=== PATIENT | male | born 1975 | race Caucasian/White ===

== ENCOUNTER 2019-11-08 00:35 | Outpatient (CLI) | payer OTHER, SELFPAY ==
[2019-11-08 17:26] LABS: SARS-CoV-2 RNA PCR Negative
== END 2019-11-08 00:36 | disposition home or self-care (01) ==
LOC: ANHCOVIDDT 00:35
PROVIDERS: PCP Internal Medicine; Visit Provider Internal Medicine Gastroenterology
DX: Z01.812 Encounter for preprocedural laboratory examination (principal); Z11.59 Encounter for screening for other viral diseases
CPT/HCPCS: 87635; C9803; U0003

== ENCOUNTER 2019-11-10 01:54 | Day surgery (SDC) | payer OTHER, SELFPAY ==
--- NOTE | 2019-11-09 12:58 | WPDANESEPPF ---
Anes - Initial Pre Proc Eval Procedure: Operation Date: 11/10/19 07:30 Proposed Procedures p Esophagogastroduodenoscopy - Meet Nguyen MD Date/Time: 11/09/19 12:58 Surgeon: Meet Nguyen MD Pre Op Diagnosis: Reflux Patient Data Age: 44 Gender: M Height: Weight: Allergies Allergy/AdvReac Type Severity Reaction Status Date / Time Penicillins Allergy Unknown NOT SURE, Verified 11/10/19 06:25 HAPPENED WHEN INFANT Home Medications Medication Instructions Recorded Confirmed Type loratadine 10 mg tablet 10 mg PO DAILY PRN 08/23/19 11/10/19 History multivitamin 1 tablet PO DAILY 08/23/19 11/10/19 History olmesartan 20 1 tablet PO DAILY 08/23/19 11/10/19 History mg-hydrochlorothiazide 12.5 mg tablet omeprazole magnesium 20 mg 20 mg PO DAILY 08/23/19 11/10/19 History tablet,delayed release Patient hx anesthesia problems: none Family hx anesthesia problems: none [facility] Past Medical History Medical History (Updated 08/23/19 @ 15:15 by Traci Butterfield CMA) GERD (gastroesophageal reflux disease) HTN (hypertension) Family History Family History (Updated 08/23/19 @ 15:16 by Traci Butterfield CMA) Father Leukemia Grandparent Heart disease Social History Social History (Updated 08/23/19 @ 15:17 by Traci Butterfield CMA) Smoking status: Never smoker Alcohol intake: current Substance use type: does not use Gender identity (if verbalized by the patient): Male Anes - Eval Final PreProcedure Day of Procedure 11/09/19 12:58 Patient weight: obese Heart: regular rate and rhythm Lungs: clear to auscultation and normal air movement Airway: Mallampati scale class II Neurological: alert and oriented Last oral intake: >/= 8 hours ASA classification: III Emergent: no Anesthetic plan: proceed Anesthesia type and monitoring: general GIVS and standard monitoring Informed Consent: The patient's anesthetic plan and its attendant risks and benefits were discussed with the patient/family/POA. Questions were solicited and answers provided to the satisfaction of the patient/family/POA.
[2019-11-10 06:26] VITALS: BP 144/90; PULSE 61; RESP 16; TEMP 36.3; O2SAT 97; BMI 32.8
[2019-11-10] MEDS: LACTATED RINGERS 1,000 ML 150 ML IV CONT (06:38)
--- NOTE | 2019-11-10 07:05 | P.HP_ITS ---
History of Present Illness History of Present Illness Consent: Risks, benefits, and alternatives have been discussed and questions answered. Patient agrees to proceed with procedure. Chief complaint: Reflux Narrative: Adi Treadwell is a 44 year old W male Referred for EGD secondary to chronic heartburn of greater than 20 years. Patient has been on omeprazole since this time does have intermittent symptoms but he denies any dysphagia odynophagia weight loss nausea vomiting hematemesis. [facility] Past Medical History Medical History GERD (gastroesophageal reflux disease) HTN (hypertension) Surgical History Surgical History (Updated 11/10/19 @ 07:06 by Meet Nguyen MD) Status post right foot surgery Family History Family History (Updated 08/23/19 @ 15:16 by Traci Butterfield CMA) Father Leukemia Grandparent Heart disease Social History Social History (Updated 08/23/19 @ 15:17 by Traci Butterfield CMA) Smoking status: Never smoker Alcohol intake: current Substance use type: does not use Gender identity (if verbalized by the patient): Male Meds Home Medications and Allergies Home Medications Medication Instructions Recorded Confirmed Type loratadine 10 mg tablet 10 mg PO DAILY PRN 08/23/19 11/10/19 History multivitamin 1 tablet PO DAILY 08/23/19 11/10/19 History olmesartan 20 1 tablet PO DAILY 08/23/19 11/10/19 History mg-hydrochlorothiazide 12.5 mg tablet omeprazole magnesium 20 mg 20 mg PO DAILY 08/23/19 11/10/19 History tablet,delayed release Allergies Allergy/AdvReac Type Severity Reaction Status Date / Time Penicillins Allergy Unknown NOT SURE, Verified 11/10/19 06:25 HAPPENED WHEN Vital Signs Vital Signs - 24 hr 11/10/19 06:26 Temperature 36.3 C L Pulse Rate 61 Respiratory Rate 16 Blood Pressure 144/90 H Pulse Oximetry 97 Exam Const: Orientation/consciousness: patient oriented x3 Resp: Auscultation: clear to auscultation bilaterally Cardio: Rate: regular rate Rhythm: regular rhythm Heart sounds: no murmurs GI: GI Palp: Yes Soft to palpation, No Tenderness to palpation present (GI), Yes No hepatosplenomegaly present and No Palpable mass present Auscultation: normal bowel sounds Neuro: General: patient oriented x3 and no focal motor deficits Extrem: General: no pedal edema Assessment and Plan Additional Plan EGD for chronic heartburn & recent increased symptoms
[2019-11-10 07:43] VITALS: BP 116/76; PULSE 85; RESP 22; O2SAT 98
[2019-11-10 07:53] VITALS: BP 120/84; PULSE 80; RESP 22; O2SAT 98
[2019-11-10 08:03] VITALS: BP 120/84; PULSE 81; RESP 26; O2SAT 98
== END 2019-11-10 08:10 | disposition home or self-care (01) ==
PROVIDERS: PCP Internal Medicine; Visit Provider Internal Medicine Gastroenterology
PROC: 0DJ08ZZ Inspection of Upper Intestinal Tract, Via Natural or Artificial Opening Endoscopic (ICD-10-PCS; CPT 43235; principal; 2019-11-10 07:30)
DX: K21.0 Gastro-esophageal reflux disease with esophagitis (principal); K31.84 Gastroparesis; I10 Essential (primary) hypertension; E78.5 Hyperlipidemia, unspecified; E66.9 Obesity, unspecified; Z68.32 Body mass index [BMI] 32.0-32.9, adult
CPT/HCPCS: 43239; 87635; 88305; C9803; J2704; J7120; U0003

== ENCOUNTER 2023-03-26 00:56 | Day surgery (SDC) | payer OTHER, SELFPAY ==
[2022-12-24 14:03] VITALS: BMI 33.0
[2023-02-26 11:24] VITALS: BMI 33.0
--- NOTE | 2023-03-24 08:19 | SUR.PREOP ---
Patient called regarding upcoming procedure. Reviewed preop instructions, appointment times, and procedure prep.
--- NOTE | 2023-03-25 14:38 | PM.HPGS ---
History of Present Illness History of Present Illness Consent: Risks, benefits, and alternatives have been discussed and questions answered. Patient agrees to proceed with procedure. Chief complaint: GERD, Neoplasm screening Narrative: Adi Treadwell is a 48 year old male referred for colon cancer screening. He also suffers from chronic acid reflux for which he takes 20 mg omeprazole daily. Review of Systems Review of Systems: All systems reviewed & are unremarkable except as noted in HPI and below PMFSH Past Medical History Medical History GERD (gastroesophageal reflux disease) HTN (hypertension) Surgical History Surgical History Status post right foot surgery Family History Family History Father Leukemia Grandparent Heart disease Social History Social History Smoking status: Never smoker Alcohol intake: current Drinks per week: 1 Alcohol use details: occasional Substance use: never Substance use type: does not use Lack of Transportation: No Lack of Food: Never True Current Housing: I Have Housing Concerned About Future Housing: No Difficulty Paying Gas/Electric Bills: No Difficulty Paying for Meds: No Currently Unemployed: No Education: Trade/Vocational Certificate Difficulty w/ Childcare or Family Care: No Living arrangements: with family Gender identity (if verbalized by the patient): Male Spiritual care concerns: No Meds Home Medications and Allergies Home Medications Medication Instructions Recorded Confirmed Type multivitamin 1 tablet PO DAILY 08/23/19 12/24/22 History olmesartan 20 1 tablet PO DAILY 12/24/22 12/24/22 History mg-hydrochlorothiazide 12.5 mg tablet omeprazole 20 mg capsule,delayed 20 mg PO DAILY 12/24/22 12/24/22 History release Allergies Allergy/AdvReac Type Severity Reaction Status Date / Time Penicillins Allergy Unknown NOT SURE, Verified 03/26/23 06:25 HAPPENED WHEN INFANT Exam Const: General: alert Orientation/consciousness: patient oriented x3 Resp: Auscultation: clear to auscultation bilaterally Cardio: Rhythm: regular rhythm GI: GI Palp: Yes Soft to palpation and No Tenderness to palpation present (GI) Neuro: General: patient oriented x3 Assessment and Plan Assessment and plan (1) Screening for colon cancer: Code(s): Z12.11 - Encounter for screening for malignant neoplasm of colon Status: Acute Assessment and Plan: Colonoscopy with possible biopsy or polypectomy or cautery or injection of substances. (2) GERD (gastroesophageal reflux disease): Qualifiers: Esophagitis presence: esophagitis presence not specified Qualified Code(s): K21.9 - Gastro-esophageal reflux disease without esophagitis Code(s): K21.9 - Gastro-esophageal reflux disease without esophagitis Status: Acute Assessment and Plan: EGD with possible biopsy or dilatation or cautery.
[2023-03-26 06:26] VITALS: BP 134/93; PULSE 84; RESP 18; TEMP 35.9; O2SAT 98
[2023-03-26] MEDS: LACTATED RINGERS 1,000 ML 150 ML IV CONT (06:33)
--- NOTE | 2023-03-26 06:58 | WPDANESEPPF ---
Anes - Initial Pre Proc Eval Procedure: Operation Date: 03/26/23 07:30 Proposed Procedures p Esophagogastroduodenoscopy & Screening Colonoscopy - Sachin Mcgill MD Date/Time: 03/26/23 06:58 Surgeon: Sachin Mcgill MD Pre Op Diagnosis: GERD, Neoplasm screening Patient Data Age: 48 Gender: M Height: 1.85 m Weight: 113.5 kg Last Vital Signs Temp 35.9 C L 03/26/23 06:26 Pulse 84 03/26/23 06:26 Resp 18 03/26/23 06:26 BP 134/93 H 03/26/23 06:26 Pulse Ox 98 03/26/23 06:26 O2 Del Method Room Air 03/26/23 06:26 Allergies Allergy/AdvReac Type Severity Reaction Status Date / Time Penicillins Allergy Unknown NOT SURE, Verified 03/26/23 06:25 HAPPENED WHEN INFANT Home Medications Medication Instructions Recorded Confirmed Type multivitamin 1 tablet PO DAILY 08/23/19 12/24/22 History olmesartan 20 1 tablet PO DAILY 12/24/22 12/24/22 History mg-hydrochlorothiazide 12.5 mg tablet omeprazole 20 mg capsule,delayed 20 mg PO DAILY 12/24/22 12/24/22 History release Patient hx anesthesia problems: none Family hx anesthesia problems: none Results Review: All pre-operative results and documents have been reviewed as part of the pre-operative evaluation. [facility] Past Medical History Medical History GERD (gastroesophageal reflux disease) HTN (hypertension) Surgical History Surgical History Status post right foot surgery Family History Family History Father Leukemia Grandparent Heart disease Social History Social History Smoking status: Never smoker Alcohol intake: current Drinks per week: 1 Alcohol use details: occasional Substance use: never Substance use type: does not use Lack of Transportation: No Lack of Food: Never True Current Housing: I Have Housing Concerned About Future Housing: No Difficulty Paying Gas/Electric Bills: No Difficulty Paying for Meds: No Currently Unemployed: No Education: Trade/Vocational Certificate Difficulty w/ Childcare or Family Care: No Living arrangements: with family Gender identity (if verbalized by the patient): Male Spiritual care concerns: No Anes - Eval Final PreProcedure Day of Procedure 03/26/23 06:58 Patient weight: obese Heart: regular rate and rhythm Lungs: clear to auscultation Airway: Mallampati scale class II Neurological: alert and oriented Last oral intake: >/= 8 hours ASA classification: II Emergent: no Anesthetic plan: proceed Anesthesia type and monitoring: general GIVS and standard monitoring Results Review: All pre-operative results and documents have been reviewed as part of the pre-operative evaluation. Informed Consent: The patient's anesthetic plan and its attendant risks and benefits were discussed with the patient/family/POA. Questions were solicited and answers provided to the satisfaction of the patient/family/POA.
--- NOTE | 2023-03-26 07:40 | SUR.OPER ---
EGD: COLON: Start 734
[2023-03-26] MEDS: SIMETHICONE ORAL SUSPENSION 20 MG/0.3 ML 30 ML BOTTLE 0.6 ML IRRIGATION (07:43)
[2023-03-26 07:50] VITALS: BP 106/66; PULSE 83; RESP 20; O2SAT 97
[2023-03-26 08:00] VITALS: BP 114/61; PULSE 85; RESP 23; O2SAT 96
[2023-03-26 08:10] VITALS: BP 123/77; PULSE 81; RESP 18; O2SAT 97
== END 2023-03-26 08:22 | disposition home or self-care (01) ==
PROVIDERS: PCP Internal Medicine; Visit Provider Internal Medicine Gastroenterology
PROC: 0DJ08ZZ Inspection of Upper Intestinal Tract, Via Natural or Artificial Opening Endoscopic (ICD-10-PCS; CPT 43235; principal; 2023-03-26 07:30)
DX: Z12.11 Encounter for screening for malignant neoplasm of colon (principal); D12.5 Benign neoplasm of sigmoid colon; D12.2 Benign neoplasm of ascending colon; I10 Essential (primary) hypertension; K21.9 Gastro-esophageal reflux disease without esophagitis; E66.9 Obesity, unspecified; Z68.33 Body mass index [BMI] 33.0-33.9, adult; Z98.890 Other specified postprocedural states; Z82.49 Family history of ischemic heart disease and other diseases of the circulatory system
CPT/HCPCS: 43235; 45385; 88305; J2001; J2704; J7120